=== PATIENT | male | born 1930 | race Asian ===

== ENCOUNTER 2018-02-26 18:09 | Inpatient (IN) | payer MEDICARE, OTHER ==
[2018-02-26 19:58] LABS: ADD MAN DIFF? NO
[2018-02-26 19:59] LABS: ABNORMAL IP MESSAGE 1; BASOPHIL # 0.1 10^3/ul (0.0-0.1); BASOPHILS % 0.3 % (0.0-2.0); EOSINOPHILS # 0.1 10^3/ul (0.0-0.5); EOSINOPHILS % 0.4 % (0.0-7.0); HEMATOCRIT 41.1 % (42.0-52.0); HEMOGLOBIN 13.6 g/dl (14.0-18.0); LYMPHOCYTES # 1.6 10^3/ul (0.8-2.9); LYMPHOCYTES % 10.2 % (15.0-51.0); MEAN CORPUSCULAR HEMOGLOBIN 32.3 pg (29.0-33.0); MEAN CORPUSCULAR HGB CONC 33.1 g/dl (32.0-37.0); MEAN CORPUSCULAR VOLUME 97.6 fl (82.0-101.0); MEAN PLATELET VOLUME 9.2 fl (7.4-10.4); MONOCYTES % 12.2 % (0.0-11.0); NEUTROPHIL # 12.1 10^3/ul (1.6-7.5); NEUTROPHILS % 75.8 % (39.0-77.0); PLATELET COUNT 300 10^3/UL (140-415); POSITIVE DIFF @See below; RED BLOOD COUNT 4.21 10^6/ul (4.70-6.10); RED CELL DISTRIBUTION WIDTH 12.3 % (11.5-14.5)
[2018-02-26] MEDS: METHYLPREDNISOLONE 125 MG INJ IV (20:13)
[2018-02-26] MEDS: LEVALBUTEROL (NEB) 1.25 MG/0.5 ML AMP INH (20:21)
[2018-02-26 20:22] LABS: ANION GAP 15 (8-16); BLOOD UREA NITROGEN 21 mg/dl (7-20); CALCIUM 8.7 mg/dl (8.4-10.2); CARBON DIOXIDE 27 mmol/L (21-31); CHLORIDE 98 mmol/L (97-110); CREATININE 0.82 mg/dl (0.61-1.24); GLUCOSE 137 mg/dl (70-220); SODIUM 135 mmol/L (135-144)
[2018-02-26 20:28] LABS: POTASSIUM 5.1 mmol/L (3.5-5.1)
[2018-02-26 20:34] LABS: B-TYPE NATRIURETIC PEPTIDE 599 PG/ML (0-450); TROPONIN-I 0.018 ng/ml (0.000-0.120)
[2018-02-26] MEDS ORDERED: ONDANSETRON 4 MG INJ IV (22:30)
[2018-02-26] MEDS ORDERED: NACL 0.9% 3 ML SYG IV (22:30)
[2018-02-26] MEDS ORDERED: ACETAMINOPHEN 325 MG TAB PO ×2 (22:30)
[2018-02-26] MEDS: HEPARIN 5,000 UNIT/0.5 ML VIAL SC (23:24)
[2018-02-26] MEDS: IOHEXOL 300MG/ML 150 ML BTL (23:38)
[2018-02-26] MEDS: SOD CHLORIDE 0.9% 100 ML (23:38)
[2018-02-27] MEDS: ALBUTEROL/IPRATROPIUM (NEB) 3 ML AMP HHN (00:51)
[2018-02-27] MEDS ORDERED: ACETYLCYSTEINE 20% 4 ML VIAL NEB (01:00)
[2018-02-27] MEDS: ACETYLCYSTEINE 20% 4 ML VIAL NEB (01:23)
[2018-02-27] MEDS: LEVALBUTEROL (NEB) 0.63 MG/3 ML AMP HHN ×6 (01:23→19:57)
[2018-02-27 02:43] LABS: AADO2 Arterial 89.7 mmHg (7.0-24.0); Allen Test ACCEPTAB; Arterial Base Excess -0.4 mmol/L (-3.0-3); Arterial Blood Gas Oxygen Sat 99.3 mmHG (95.0-100.0); Arterial COHb 0.8 % (0.0-3.0); Arterial Fraction of Oxyhgb 98.2 % (93.0-99.0); Arterial HCO3 24.2 mmol/L (22.0-26.0); Arterial MetHb 0.3 % (0.0-1.5); Arterial Total Hemglobin 14.1 g/dl (12.0-18.0); Arterial pCO2 39.7 mmhg (35-45); Blood Gas IEPAP 15/5; MODE MASK - BIPAP; Site Right Radial
[2018-02-27] MEDS: PIPER-TAZO 3.375 GM IV (PMX) 100 ML IVPB ×2 (02:57→06:54)
[2018-02-27] MEDS: LORAZEPAM 2 MG INJ IV (02:57)
[2018-02-27] MEDS ORDERED: LEVALBUTEROL (NEB) 0.63 MG/3 ML AMP HHN (05:00)
[2018-02-27] MEDS: IPRATROPIUM (NEB) 0.5 MG/2.5 ML AMP HHN ×4 (05:09→17:00)
[2018-02-27] MEDS: PANTOPRAZOLE (EC) 40 MG TAB PO (06:00)
[2018-02-27] MEDS: HEPARIN 5,000 UNIT/0.5 ML VIAL SC ×3 (06:50→21:14)
[2018-02-27] MEDS: METHYLPREDNISOLONE 40 MG INJ IV ×2 (06:53→21:01)
[2018-02-27 07:22] LABS: WHITE BLOOD COUNT 10.2 10^3/ul (4.8-10.8)
[2018-02-27 07:22] LABS: ABNORMAL IP MESSAGE 1; HEMATOCRIT 39.2 % (42.0-52.0); HEMOGLOBIN 12.9 g/dl (14.0-18.0); MEAN CORPUSCULAR HEMOGLOBIN 31.9 pg (29.0-33.0); MEAN CORPUSCULAR HGB CONC 32.9 g/dl (32.0-37.0); MEAN PLATELET VOLUME 9.3 fl (7.4-10.4); PLATELET COUNT 311 10^3/UL (140-415); POSITIVE DIFF @See below; RED BLOOD COUNT 4.04 10^6/ul (4.70-6.10); RED CELL DISTRIBUTION WIDTH 12.2 % (11.5-14.5)
[2018-02-27 07:28] LABS: ADD MAN DIFF? YES
[2018-02-27 07:36] LABS: HEMOGLOBIN A1C 5.2 % (0-5.9)
[2018-02-27] MEDS: MULTIVITAMINS THERAPEUTIC TAB PO (09:00)
[2018-02-27] MEDS: TIOTROPIUM 18 MCG CAPSULE INHA DEV INH (09:00)
[2018-02-27] MEDS: FLUTICASONE/VILANTEROL 100-25 INH (09:00)
[2018-02-27] MEDS ORDERED: LACTOSE FREE FOOD PO (09:00)
[2018-02-27] MEDS ORDERED: predniSONE 20 MG TAB GTB (09:00)
[2018-02-27 11:35] LABS: INR 0.99; PROTIME 13.2 Sec (11.9-14.9)
[2018-02-27 11:36] LABS: PARTIAL THROMBOPLASTIN TIME 45.5 Sec (23.0-35.0)
[2018-02-27 11:39] LABS: ALANINE AMINOTRANSFERASE 44 IU/L (13-69); ALBUMIN 3.3 g/dl (3.3-4.9); ALBUMIN/GLOBULIN RATIO 0.89; ALKALINE PHOSPHATASE 103 IU/L (42-121); ANION GAP 14 (8-16); ASPARTATE AMINO TRANSFERASE 33 IU/L (15-46); BILIRUBIN,INDIRECT 0.7 mg/dl (0-1.1); BILIRUBIN,TOTAL 0.7 mg/dl (0.2-1.3); BLOOD UREA NITROGEN 17 mg/dl (7-20); CALCIUM 8.9 mg/dl (8.4-10.2); CARBON DIOXIDE 27 mmol/L (21-31); CHLORIDE 98 mmol/L (97-110); CREATININE 0.73 mg/dl (0.61-1.24); GLUCOSE 207 mg/dl (70-220); MAGNESIUM 2.3 mg/dl (1.7-2.5); POTASSIUM 4.3 mmol/L (3.5-5.1); SODIUM 135 mmol/L (135-144)
[2018-02-27 11:47] LABS: POTASSIUM 4.2 mmol/L (3.5-5.1)
[2018-02-27 12:10] LABS: THYROID STIMULATING HORMONE 0.162 MIU/L (0.465-4.680)
[2018-02-27 12:15] LABS: ANISOCYTOSIS 1+ (0-0); BAND NEUTROPHILS #M 1.2 10^3/ul (0.0-0.6); BAND NEUTROPHILS % (M) 12 % (0-4); BURR CELLS 1+ (0-0); GIANT THROMBO% (M) 2 % (0-0); LYMPHOCYTES #M 0.4 10^3/ul (0.8-2.9); LYMPHOCYTES % (M) 4 % (15-51); MICROCYTOSIS 1+ (0-0); MONOCYTE #M 0.1 10^3/ul (0.3-0.9); MONOCYTES % (M) 1 % (0-11); PLATELET ESTIMATE NORMAL; PLATELET MORPHOLOGY COMMENT @See below; POLYCHROMASIA 1+ (0-0); REACTIVE LYMPHOCYTES #M 0.1 10^3/ul (0.0-0.0); REACTIVE LYMPHOCYTES% (M) 1 % (0-0); SEG NEUT #M 8.4 10^3/ul (1.6-7.5); SEGMENTED NEUTROPHILS (M) % 81 % (39-77)
[2018-02-27 13:01] LABS: PROSTATE SPECIFIC ANTIGEN 15.5 ng/ml (0.0-4.0)
[2018-02-27] MEDS: BUDESONIDE (NEB) 0.5MG/2ML AMP HHN ×2 (13:31→19:56)
[2018-02-27] MEDS: ARFORMOTEROL TARTRATE 15MCG/2 ML AMP NEB ×2 (13:49→19:56)
[2018-02-27 15:49] LABS: CARCINOEMBRYONIC ANTIGEN 3.6 ng/ml (0.0-5.0)
[2018-02-27 17:00] LABS: ALPHA FETOPROTEIN 5.14 IU/L (0.00-7.21)
[2018-02-27] MEDS: LEVOFLOXACIN 500 MG TAB PO (17:56)
[2018-02-27] MEDS ORDERED: MONTELUKAST 10 MG TAB PO (21:00)
[2018-02-27] MEDS: MELATONIN 3 MG TABLET PO (21:01)
[2018-02-27] MEDS: MONTELUKAST 10 MG TAB PO (21:01)
[2018-02-28] MEDS: LEVALBUTEROL (NEB) 0.63 MG/3 ML AMP HHN ×2 (01:17→15:19)
[2018-02-28] MEDS: ALPRAZOLAM 0.25 MG TAB PO ×2 (03:20→14:58)
[2018-02-28] MEDS: LEVOFLOXACIN 500 MG TAB PO (06:49)
[2018-02-28] MEDS: PANTOPRAZOLE (EC) 40 MG TAB PO (06:49)
[2018-02-28] MEDS: HEPARIN 5,000 UNIT/0.5 ML VIAL SC ×3 (06:57→22:00)
[2018-02-28 07:13] LABS: BLOOD UREA NITROGEN 30 mg/dl (7-20); CALCIUM 8.8 mg/dl (8.4-10.2); CHLORIDE 101 mmol/L (97-110); CREATININE 0.81 mg/dl (0.61-1.24); GLUCOSE 158 mg/dl (70-220); MAGNESIUM 2.3 mg/dl (1.7-2.5); POTASSIUM 4.7 mmol/L (3.5-5.1); SODIUM 137 mmol/L (135-144)
[2018-02-28 07:37] LABS: ANION GAP 13 (8-16); CARBON DIOXIDE 28 mmol/L (21-31)
[2018-02-28] MEDS: TIOTROPIUM 18 MCG CAPSULE INHA DEV INH (08:14)
[2018-02-28] MEDS: MULTIVITAMINS THERAPEUTIC TAB PO (08:15)
[2018-02-28] MEDS: METHYLPREDNISOLONE 40 MG INJ IV ×2 (08:15→20:11)
[2018-02-28] MEDS: BUDESONIDE (NEB) 0.5MG/2ML AMP HHN ×2 (08:41→19:58)
[2018-02-28] MEDS: ARFORMOTEROL TARTRATE 15MCG/2 ML AMP NEB ×2 (08:48→19:58)
[2018-02-28] MEDS: GUAIFENESIN/DM 5ML CUP PO ×3 (15:13→23:00)
[2018-02-28] MEDS: MONTELUKAST 10 MG TAB PO (20:11)
[2018-02-28] MEDS: MELATONIN 3 MG TABLET PO (20:11)
[2018-03-01] MEDS: GUAIFENESIN/DM 5ML CUP PO ×7 (03:12→23:00)
[2018-03-01] MEDS: FUROSEMIDE 40 MG INJ IV (03:12)
[2018-03-01] MEDS: ALPRAZOLAM 0.25 MG TAB PO ×2 (03:14→16:51)
[2018-03-01] MEDS: LEVALBUTEROL (NEB) 0.63 MG/3 ML AMP HHN ×3 (04:10→20:29)
[2018-03-01] MEDS: IPRATROPIUM (NEB) 0.5 MG/2.5 ML AMP HHN ×2 (04:10→17:38)
[2018-03-01] MEDS: LEVOFLOXACIN 500 MG TAB PO ×2 (06:00→08:04)
[2018-03-01] MEDS: PANTOPRAZOLE (EC) 40 MG TAB PO (06:01)
[2018-03-01] MEDS: HEPARIN 5,000 UNIT/0.5 ML VIAL SC (06:08)
[2018-03-01 07:18] LABS: ADD MAN DIFF? NO
[2018-03-01 07:25] LABS: ABNORMAL IP MESSAGE 1; BASOPHILS % 0.2 % (0.0-2.0); HEMATOCRIT 40.4 % (42.0-52.0); HEMOGLOBIN 13.3 g/dl (14.0-18.0); LYMPHOCYTES # 0.5 10^3/ul (0.8-2.9); LYMPHOCYTES % 2.9 % (15.0-51.0); MEAN CORPUSCULAR HEMOGLOBIN 32.6 pg (29.0-33.0); MEAN CORPUSCULAR HGB CONC 32.9 g/dl (32.0-37.0); MEAN PLATELET VOLUME 10.5 fl (7.4-10.4); MONOCYTE # 0.9 10^3/ul (0.3-0.9); MONOCYTES % 5.5 % (0.0-11.0); NEUTROPHIL # 14.4 10^3/ul (1.6-7.5); NEUTROPHILS % 89.8 % (39.0-77.0); PLATELET COUNT 345 10^3/UL (140-415); POSITIVE DIFF @See below; RED BLOOD COUNT 4.08 10^6/ul (4.70-6.10); RED CELL DISTRIBUTION WIDTH 12.5 % (11.5-14.5)
[2018-03-01 08:01] LABS: ANION GAP 8 (5-13); BLOOD UREA NITROGEN 31 mg/dl (7-20); CALCIUM 9.3 mg/dl (8.4-10.2); CARBON DIOXIDE 32 mmol/L (21-31); CHLORIDE 98 mmol/L (97-110); CREATININE 0.81 mg/dl (0.61-1.24); GLUCOSE 134 mg/dl (70-220); POTASSIUM 4.7 mmol/L (3.5-5.1); SODIUM 138 mmol/L (135-144)
[2018-03-01] MEDS: MULTIVITAMINS THERAPEUTIC TAB PO (08:04)
[2018-03-01] MEDS: METHYLPREDNISOLONE 40 MG INJ IV (08:04)
[2018-03-01] MEDS: BUDESONIDE (NEB) 0.5MG/2ML AMP HHN ×2 (08:05→20:29)
[2018-03-01] MEDS: ARFORMOTEROL TARTRATE 15MCG/2 ML AMP NEB ×2 (09:00→20:00)
[2018-03-01] MEDS ORDERED: HEPARIN 5,000 UNIT/0.5 ML VIAL ×2 (11:28→20:18)
[2018-03-01] MEDS: predniSONE 20 MG TAB PO (11:31)
[2018-03-01] MEDS: HEPARIN SODIUM 5,000 UNIT/ML VIAL SC ×3 (11:38→22:27)
[2018-03-01] MEDS: DOCUSATE SODIUM 100 MG CAP PO (15:51)
[2018-03-01] MEDS: POLYETHYLENE GLYCOL 17 GM PACKET NGT (15:51)
[2018-03-01] MEDS: MONTELUKAST 10 MG TAB PO (21:59)
[2018-03-01] MEDS: MELATONIN 3 MG TABLET PO (21:59)
[2018-03-02] MEDS: GUAIFENESIN/DM 5ML CUP PO ×4 (03:00→15:00)
[2018-03-02] MEDS ORDERED: HEPARIN 5,000 UNIT/0.5 ML VIAL (06:30)
[2018-03-02] MEDS: PANTOPRAZOLE (EC) 40 MG TAB PO (06:32)
[2018-03-02] MEDS: LEVOFLOXACIN 500 MG TAB PO (06:32)
[2018-03-02] MEDS: ACETYLCYSTEINE 20% 4 ML VIAL NEB (06:33)
[2018-03-02] MEDS: HEPARIN SODIUM 5,000 UNIT/ML VIAL SC ×2 (06:41→14:00)
[2018-03-02] MEDS: ARFORMOTEROL TARTRATE 15MCG/2 ML AMP NEB (08:12)
[2018-03-02] MEDS: BUDESONIDE (NEB) 0.5MG/2ML AMP HHN (08:12)
[2018-03-02] MEDS: predniSONE 20 MG TAB PO (09:27)
[2018-03-02] MEDS: MULTIVITAMINS THERAPEUTIC TAB PO (09:27)
[2018-03-02] MEDS: LEVALBUTEROL (NEB) 0.63 MG/3 ML AMP HHN (15:08)
== END 2018-03-02 15:30 | disposition home health service (06) | DRG 190 ==
LOC: E/R 18:09 → TEL 22:07
DX: J43.9 Emphysema, unspecified (principal); J18.9 Pneumonia, unspecified organism; J44.0 Chronic obstructive pulmonary disease with (acute) lower respiratory infection; J44.1 Chronic obstructive pulmonary disease with (acute) exacerbation; J98.11 Atelectasis; F41.9 Anxiety disorder, unspecified; R91.1 Solitary pulmonary nodule; Z87.891 Personal history of nicotine dependence; K76.9 Liver disease, unspecified; D64.9 Anemia, unspecified; R97.20 Elevated prostate specific antigen [PSA]; D72.829 Elevated white blood cell count, unspecified
CPT/HCPCS: 36600; 71045; 71260; 80048; 80053; 82105; 82378; 82803; 83036; 83735; 83880; 84132; 84153; 84154; 84443; 84484; 85025; 85610; 85730; 87070; 87081; 92526; 92610; 93005; 93306; 94640; 94644; 94660; 96374; 97116; 97161; 97530; 99285-25